=== PATIENT | male | born 1990 | race Caucasian/White ===

== ENCOUNTER 2023-10-09 13:03 | Emergency (ER) | payer MEDICAID ==
[~2023-10-09] VITALS: Ht 172.7 cm; Wt 93.0 kg
[2023-10-09 13:26] VITALS: BP_SYST 127; PULSE 80; RESP 16; TEMP 97.8; O2SAT 97
[2023-10-09] MEDS ORDERED: CLOT15CR5 TP (13:33)
[2023-10-09 13:45] VITALS: BP_SYST 121; PULSE 75; RESP 16; TEMP 98.1; O2SAT 100
== END 2023-10-09 13:49 | disposition home or self-care (01) ==
LOC: SED 13:03
DX: B35.0 Tinea barbae and tinea capitis (principal)
CPT/HCPCS: 99283